=== PATIENT | male | born 1995 | race Caucasian/White ===

== ENCOUNTER 2022-07-11 17:33 | Emergency (ER) | payer OTHER ==
[2022-07-11] MEDS ORDERED: IBUPROFEN 400 MG TAB ONE (18:23)
[2022-07-11 18:37] LABS: Specific Gravity 1.029 (1.005-1.030); Urine Bacteria <20 /HPF (<20); Urine Bilirubin NEGATIVE (Negative); Urine Blood Negative (Negative); Urine Clarity Clear (Clear); Urine Color Light-Yellow (Yellow); Urine Glucose NEGATIVE (Negative); Urine Mucus 2+ /HPF (None Seen); Urine Protein TRACE (Negative); Urine RBC <5 /HPF (None Seen); Urine Urobilinogen Normal (Normal); Urine pH 5.5 (5.0-7.0)
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
[2022-07-11 19:08] VITALS: TEMP 97.8; O2SAT 100
[2022-07-11 19:10] VITALS: BP 132/99
== END 2022-07-11 18:56 | disposition home or self-care (01) ==
LOC: ER 17:33
DX: R51.9 Headache, unspecified (principal); M79.10 Myalgia, unspecified site; R29.91 Unspecified symptoms and signs involving the musculoskeletal system; V49.40XA Driver injured in collision with unspecified motor vehicles in traffic accident, initial encounter; F17.210 Nicotine dependence, cigarettes, uncomplicated
CPT/HCPCS: 81001; 99284